=== PATIENT | female | born 1995 | race African-American/Black ===

== ENCOUNTER 2023-10-31 09:29 | Emergency (ER) | payer MEDICAID, SELFPAY ==
[2023-10-31] MEDS ORDERED: Ibuprofen 200 MG TAB ONE (10:44)
[2023-10-31] MEDS ORDERED: Dexamethasone 10 MG/ML VIAL ONE (10:44)
[2023-10-31] MEDS ORDERED: Acetaminophen 500 MG TAB ONE (10:44)
== END 2023-10-31 11:36 | disposition home or self-care (01) ==
LOC: CSHERS 09:29
DX: B34.9 Viral infection, unspecified (principal); M25.571 Pain in right ankle and joints of right foot; F17.290 Nicotine dependence, other tobacco product, uncomplicated
CPT/HCPCS: 71045; J1100